=== PATIENT | female | born 2000 | race Caucasian/White ===

== ENCOUNTER → 2024-04-22 10:41 | Outpatient (BNVA) | payer BC, MEDICAID, SELFPAY | PROVIDERS: Visit Provider Nurse Practitioner | DX: N64.4 Mastodynia (principal) | CPT/HCPCS: 81025; 84702 ==

== ENCOUNTER → 2024-07-12 16:27 | Outpatient (BNVA) | payer BC, MEDICAID, SELFPAY | PROVIDERS: Visit Provider Nurse Practitioner Family | DX: N91.1 Secondary amenorrhea (principal) | CPT/HCPCS: 81025; 84702 ==

== ENCOUNTER → 2024-08-11 13:00 | Outpatient (BNVA) | payer BC, MEDICAID, SELFPAY | PROVIDERS: Visit Provider Emergency Medicine | DX: Z32.01 Encounter for pregnancy test, result positive (principal); N92.6 Irregular menstruation, unspecified | CPT/HCPCS: 81025; 84703 ==